=== PATIENT | female | born 1955 | race Caucasian/White ===

== ENCOUNTER → 2016-07-06 | Outpatient (CLI) | payer BC | END | disposition home or self-care (01) | LOC: RAD.S 09:43 | DX: Z12.31 Encounter for screening mammogram for malignant neoplasm of breast (principal); N60.02 Solitary cyst of left breast; N63 Unspecified lump in breast ==

== ENCOUNTER → 2016-07-11 | Outpatient (CLI) | payer BC | END | disposition home or self-care (01) | LOC: RAD.S 12:48 | DX: N63 Unspecified lump in breast (principal); N60.02 Solitary cyst of left breast ==